=== PATIENT | female | born 1965 | race Caucasian/White ===

== ENCOUNTER 2022-07-25 13:51 | Emergency (ER) | payer MEDICARE, MEDICAID ==
[~2022-07-25] VITALS: Ht 160 cm; Wt 73.0 kg
[2022-07-25 13:53] VITALS: BP 118/72
[2022-07-25] MEDS ORDERED: MAGNESIUM/ALUMINUM HYDROXIDE/SIMETHICONE 30ML UDC PO ONE (16:15)
[2022-07-25] MEDS ORDERED: VISCOUS LIDOCAINE 2% 15 ML UDC MM ONE (16:15)
[2022-07-25 16:47] LABS: BASOPHILS % 0.4 % (0.0-2.0); EOSINOPHILS % 3.7 % (0.0-5.0); HEMATOCRIT. 28.2 % (36.0-48.0); HEMOGLOBIN. 8.5 g/dL (12.0-16.0); LYMPHOCYTES % 30.4 % (20.0-50.0); MEAN CORPUSCULAR HEMOGLOBIN 20.7 pg (28.0-32.0); MEAN CORPUSCULAR VOLUME 69.1 fL (81.0-99.0); MEAN PLATELET VOLUME 8.2 fl (7.4-10.4); MONOCYTES % 7.4 % (2.0-8.0); NEUTROPHILS % 58.1 % (40.0-76.0); PLATELET 303 x1000/uL (130-400); RED BLOOD CELL COUNT 4.08 mill/uL (4.2-5.4); RED CELL DISTRIBUTION WIDTH 19.3 % (11.6-14.6)
[2022-07-25 16:53] LABS: CHLORIDE 111 mEq/L (98-107)
[2022-07-25 16:54] LABS: PROTHROMBIN TIME 10.5 sec (9.6-11.0)
[2022-07-25 17:00] LABS: ETHANOL BLOOD < 10 mg/dL
[2022-07-25] MEDS ORDERED: PANTOPRAZOLE SODIUM 40 MG/VIAL IV ONE (17:00)
[2022-07-25 17:12] LABS: HCG SCREEN NEGATIVE
[2022-07-25 17:41] LABS: PLATELET ESTIMATE NORMAL
[2022-07-25] MEDS ORDERED: PROT40 MT (18:00)
[2022-07-25] MEDS ORDERED: ONDA4TAB50 MT (18:00)
[2022-07-25] MEDS ORDERED: MAG-55 MT (18:00)
[2022-07-25] MEDS ORDERED: PANTOPRAZOLE 40MG DR TABLET PO ONE (18:15)
== END 2022-07-25 19:21 | disposition home or self-care (01) ==
LOC: ER 13:51
DX: K29.70 Gastritis, unspecified, without bleeding (principal); D64.9 Anemia, unspecified; E11.9 Type 2 diabetes mellitus without complications; Z87.11 Personal history of peptic ulcer disease
CPT/HCPCS: 36415; 71045; 76705; 80053; 80320; 84703; 85025; 93005; 99285; G0480